=== PATIENT | female | born 1965 | race Two or more races ===

== ENCOUNTER 2024-04-26 14:04 | Emergency (ER) | payer MEDICAID, SELFPAY ==
[2024-04-26 14:27] VITALS: BP 143/99; PULSE 100; RESP 18; TEMP 37.1; O2SAT 98; BMI 31.2
--- NOTE | 2024-04-26 14:45 | XR_ITS ---
Examination: CT brain head without contrast. 2-D sagittal coronal reconstructions Date and time of exam:April 26, 2024 1613 hours INDICATIONS: Left-sided head pain radiating to the neck beginning 4 days ago COMPARISON: 12/22/2010 CTDI: vol (mGy):46.8 DLP: (mGycm):927 Technique: Multiple CT axial sections of the brain have been obtained, 5 mm slice thickness. Contrast has not been administered. 2-D sagittal, coronal reconstructions have been obtained Low dose protocols were performed. One or more of the following dose reduction techniques were used; automated exposure control, adjustment of the mA and/or KV according to patient size, use of iterative reconstruction technique. Findings: No significant ventricular enlargement. Intra-axial or extra-axial hemorrhage density is not seen. No mass effect or midline shift Basal cisterns are not remarkable. Fourth ventricle is midline. Cranial vault intact. Impression: Negative for acute hemorrhage, mass effect or midline shift
--- NOTE | 2024-04-26 14:45 | XR_ITS ---
Examination: CT cervical spine without contrast 2-D sagittal reconstructions 2-D coronal reconstructions 3-D reconstructions. Exam date and time:April 26, 2024 1613 hours INDICATIONS: Neck pain beginning 4 days ago CTDI:vol (mGy) 8.54 DLP: (mGycm) 184 Technique: Multiple 2 mm axial sections of the cervical spine have been obtained. The coronal and sagittal reconstructions have been obtained. 3-D reconstructions have been obtained. Low dose protocols were performed. One or more of the following dose reduction techniques were used; automated exposure control, adjustment of the mA and/or KV according to patient size, use of iterative reconstruction technique. Findings: Axial sections demonstrate intact base of the skull. Cervical fusion C4-C7 with anatomic alignment C1 exhibit satisfactory relationship to the odontoid. No acute cervical vertebral body fracture seen. Alignment posterior spinous processes satisfactory. C5-C6, C6-C7 moderate left neural foraminal stenosis Impression: No acute cervical fracture. C5-C6, C6-C7 moderate left neural foraminal stenosis
--- NOTE | 2024-04-26 14:45 | PD.EDRME ---
Rapid Medical Screening Exam RME Arrival date/time: 04/26/24 14:04 58-year-old female with history of cervical fusion reports with complaints of left side head and neck pain x 1 week Chief Complaint: Headache Time Seen by Provider: 04/26/24 14:17 Vital signs: Vital Signs Temperature 98.7 F 04/26/24 14:27 Pulse Rate 100 04/26/24 14:27 Respiratory Rate 18 04/26/24 14:27 Blood Pressure 143/99 H 04/26/24 14:27 Pulse Oximetry (%) 98 04/26/24 14:27 Oxygen Delivery Method Room Air 04/26/24 14:27
--- NOTE | 2024-04-26 15:17 | PD.EDRME ---
Rapid Medical Screening Exam RME Arrival date/time: 04/26/24 14:04 04/26/24 14:04 58-year-old female with history of cervical fusion reports with complaints of left side head and neck pain x 1 week Chief Complaint: Headache Time Seen by Provider: 04/26/24 14:17 Vital signs: Vital Signs Temperature 98.7 F 04/26/24 14:27 Pulse Rate 100 04/26/24 14:27 Respiratory Rate 18 04/26/24 14:27 Blood Pressure 143/99 H 04/26/24 14:27 Pulse Oximetry (%) 98 04/26/24 14:27 Oxygen Delivery Method Room Air 04/26/24 14:27 RME Narrative: 04/26/24 14:04 58-year-old female with history of cervical fusion reports with complaints of left side head and neck pain x 1 week
--- NOTE | 2024-04-26 17:41 | EDNOTE_ITS ---
ED Headache RME/HPI General Chief Complaint: Headache Stated Complaint: PAIN/NUMBNESS TO LEFT HEAD/NECK/SHOULDER Time Seen by Provider: 04/26/24 14:17 Arrival date/time: 04/26/24 14:04 58-year-old female with a history of cervical fusion of C4-C7 reports with complaints of left-sided neck pain that radiates to the left side of the head for 1 week. Patient denies vision or hearing changes dizziness nausea or vomiting syncopal episodes weakness fatigue cough congestion fever or chills. Patient states that she has not taken any medications as she was uncertain of what to take Limitations: no limitations RME / HPI RME / HPI Narrative: 04/26/24 14:04 58-year-old female with history of cervical fusion reports with complaints of left side head and neck pain x 1 week Related Data Home Medications ?Medication ?Instructions ?Recorded ?Confirmed lisinopril 2.5 mg tablet 5 mg PO DAILY 03/18/18 07/25/23 vibegron 75 mg tablet (Gemtesa) 75 mg PO QDAY 03/12/22 07/25/23 estradiol 0.01% (0.1 mg/gram) 2 g vaginal DIRECTED 07/23/22 07/25/23 vaginal cream (Estrace) Previous Rx's ?Medication ?Instructions ?Recorded ibuprofen 800 mg tablet 800 mg PO TID PRN pain #30 tabs 01/07/23 tramadol 50 mg tablet 50 mg PO BID PRN pain #6 tabs 01/07/23 dextromethorphan-guaifenesin 5 10 ml PO Q8H PRN cough #180 mL 02/25/23 mg-100 mg/5 mL oral liquid ipratropium bromide 21 mcg (0.03 2 spray intranasal TID PRN nasal 02/25/23 %) nasal spray congestion #30 mL prednisone 20 mg tablet See Rx Instructions .Route 02/25/23 .COMPLEX #9 tabs hydrocodone 5 mg-acetaminophen 325 1 tab PO BID PRN pain #10 tabs 10/30/23 mg tablet ibuprofen 600 mg tablet 600 mg PO Q6H #30 tabs 10/30/23 Allergies Allergy/AdvReac Type Severity Reaction Status Date / Time No Known Allergies Allergy Verified 10/30/23 17:45 Review of Systems Constitutional Constitutional: Denies chills and Denies fever(s) Eyes Eyes: Denies change in vision and Denies eye discharge ENT Ears, Nose, Mouth, and Throat: Denies abnormal hearing, Denies disequilibrium, Denies dizziness and Reports neck pain Cardiovascular Cardiovascular: Denies chest pain, Denies dyspnea, Denies leg edema and Denies syncope Respiratory Respiratory: Denies cough and Denies dyspnea Gastrointestinal Gastrointestinal: Denies nausea and Denies vomiting Musculoskeletal Musculoskeletal: Denies back pain and Reports neck pain Integumentary/Breasts Skin/Breast: Denies erythema, Denies lesions, Denies rash and Denies skin pain Neurologic Neurologic: Denies abnormal hearing, Denies behavioral changes, Denies confusion, Denies disequilibrium, Denies dizziness and Denies syncope Psychiatric Psychiatric: Denies behavioral changes and Denies confusion Hematologic/Lymphatic Hematologic/Lymphatic: Denies easy bleeding and Denies easy bruising Past Medical History Past Medical History NEUROLOGIC: Negative Neurological Disorders CARDIAC: Positive Hypertension; Negative Cardiac Disorders or Congestive Heart Failure RESPIRATORY: Negative Chronic Obstructive Pulmonary Disease (COPD) or Asthma GASTROINTESTINAL: Negative Gastrointestinal Disorders GENITOURINARY: Negative Genitourinary Disorders or Renal Disease MUSCULOSKELETAL: Negative Musculoskeletal Disorders ENDOCRINE: Negative Diabetes Mellitus Type 1 or Diabetes Mellitus Type 2 HEMATOLOGIC: Negative Sickle Cell Disease PSYCHO/SOCIAL: Negative Psychiatric Problems Surgical History SURGICAL: Positive Hysterectomy Social History SMOKING STATUS: Never smoker ED Exam General Limitations: Present no limitations General appearance: Present alert and in no apparent distress Head Head exam: Present atraumatic Eye Eye exam: Present normal appearance, PERRL and EOMI ENT ENT exam: Present normal exam, normal oropharynx and mucous membranes moist Neck Neck exam: Present normal inspection, full ROM and trachea midline Chest Chest inspection: Present normal inspection and symmetric chest wall rise Respiratory Respiratory exam: Present normal lung sounds bilaterally Cardiovascular Cardiovascular exam: Present regular rate, normal rhythm and normal heart sounds Abdominal Exam Abdominal exam: Present soft and normal bowel sounds Extremities Exam Extremities exam: Present normal inspection and full ROM Back Exam Back exam: Present normal inspection and full ROM Neurological Exam Neurological exam: Present alert, oriented X3 and CN II-XII intact Psychiatric Psychiatric exam: Present normal affect and normal mood Skin Skin exam: Present warm, dry, intact and normal color Course Course Course Narrative: 58-year-old female reports with complaints of a headache. Patient CT cervical spine is indicative of the C4-C7 cervical fusion but no other abnormalities are noted head CT is unremarkable. Differential diagnosis includes tension headache migraine headache and stress Quality Measures none Orders Category Date Time Status CT cervical spine wo con Stat Exams 04/26/24 14:[address] head/brain wo con Stat Exams 04/26/24 14:45 Completed Vital Signs Vital signs: Vital Signs Temperature 98.7 F 04/26/24 14:27 Pulse Rate 100 04/26/24 14:27 Respiratory Rate 18 04/26/24 14:27 Blood Pressure 143/99 H 04/26/24 14:27 Pulse Oximetry (%) 98 04/26/24 14:27 Oxygen Delivery Method Room Air 04/26/24 14:27 Headache Patient data External records reviewed:: None Clinical information provided by:: patient Social determinants that could affect healthcare access:: none Patient has the following chronic illnesses:: none How is presenting disease/condition affected by chronic disease/condition?: no chronic disease Evaluation data The following diagnostics were reviewed and interpreted by me:: radiology exam(s) Lab and/or radiology exams considered but not ordered:: none Interpretation Summary: negative for brain bleed Medications / Prescriptions Medications or Prescriptions considered but not ordered:: none Medication administrations:: none Consultations Consultation(s) initiated? (list below): No Diagnosis Differential diagnosis headache: migraine and tension headache Most likely diagnosis given after review of the tests above:: Headache Admission Indicated Admission indicated?: not indicated Admission Request Was there a request for admission?: No Disposition Plan Disposition Plan: Discharge Discharge Attestation Discharge Attestation: The patient and all family members were given an opportunity to ask questions and understood the discharge instructions. Discharge instructions specifically effects, indications for sooner follow up or return to the emergency department, and the expected course of current diagnosis. Patient condition: Stable Discharge Plan Plan Patient Disposition: HOME (Self Care) Prescriptions/Referrals Prescriptions/Med Rec: No Action lisinopril 2.5 mg tablet 5 mg PO DAILY estradiol [Estrace] 0.01 % (0.1 mg/gram) cream 2 g vaginal DIRECTED Patient Comments: twice a week Rx Instructions: for 7 days Gemtesa 75 mg tablet 75 mg PO QDAY ibuprofen 800 mg tablet 800 mg PO TID PRN (Reason: pain) Qty: 30 0RF tramadol 50 mg tablet 50 mg PO BID PRN (Reason: pain) Qty: 6 0RF dextromethorphan-guaifenesin 5-100 mg/5 mL liquid 10 ml PO Q8H PRN (Reason: cough) Qty: 180 0RF prednisone 20 mg tablet See Rx Instructions .ROUTE .COMPLEX Qty: 9 0RF Rx Instructions: 2 tabs PO QAM x 3 days, then 1 tab PO QAM x 3 days ipratropium bromide 21 mcg (0.03 %) spray,non-aerosol 2 spray intranasal TID PRN (Reason: nasal congestion) Qty: 30 0RF Rx Instructions: 2 sprays each nostril up to 3 times a day prn nasal congestion hydrocodone-acetaminophen 5-325 mg tablet 1 tab PO BID MDD 10 PRN (Reason: pain) Qty: 10 0RF ibuprofen 600 mg tablet 600 mg PO Q6H Qty: 30 0RF Referrals: Nolan Aleman PA-C [Primary Care Provider] - In 1 week Problem List Clinical Impression: Headache, Neck pain Patient/Caregiver Discharge Instructions Discharge Activity: activity as tolerated Education Materials: Know Your Neck: The Cervical Spine Additional Instructions: Your CAT scans were normal your headaches can be treated with medication such as ibuprofen or Tylenol take as directed and follow with your primary care provider as needed. Be sure to hydrate well Print Language: Icelandic Stand Alone Forms: [facility] Award Info., Patient Portal Info Letter
[2024-04-26] MEDS: KETOROLAC INJ 60 MG/2 ML VIAL 30 MG IM (19:09)
== END 2024-04-26 19:14 | disposition home or self-care (01) ==
PROVIDERS: Emergency Provider Emergency Medicine; PCP Physician Assistant
DX: R51.9 Headache, unspecified (principal); M54.2 Cervicalgia
CPT/HCPCS: 70450; 72125; 96372; 99284; J1885

== ENCOUNTER 2024-07-27 14:00 | Outpatient (RCR) | payer MEDICAID, SELFPAY ==
--- NOTE | 2024-07-19 14:06 | PT.OIERPT ---
PT OP Initial Eval Patient Information Outpatient Physical Therapy Treatment Date: 07/19/24 Visit Reasons: NECK PAIN Medical Diagnosis: M48.02 Treatment Dx #1: neck pain Treatment Dx #2: Decreased C/S ROM Start of Care: 07/19/24 Date of Onset: 1 yr ago Smoking Status Smoking Status: Never smoker Initial Assessment Subjective: Pt is 58 yr old female who reports onset of neck pain x1 yr on the L side. 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 PMH: HTN, allergies, anxiety, anterior C/S fusion in 2013 Imaging: Xray of C/S in EMR, C5-C6, C6-C7 moderate left neural foraminal stenosis?? Pt goal: less pain in the neck Objective: C/S AROM: Flexion: 20% Extension: unable Rotation: R: 40%, L: 30% of full TTP: moderate of L side C/S and upper trap Assessment: Pt reports decreased C/S ROM and L sided neck pain with TTP of the upper traps and scalenes. Pt requires skilled therapy to meet goals and has fair rehb potential to meet goals. 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 Ind with HEP 2. Improved C/S ROM to at least 50% B 3. Decreased TTP of C/S and L UT from mod to min Pt will tolerate work duties x1 hr with <=3/10 neck pain Treatment Plan ? 1. Manual therapy ? 2. Therex ? 3. Modalities as indicated, moist heat, ice, estim, mechanical traction Frequency and Duration: 2x a week for 4 trial visits. If progressing continued up to 12 visits plus evaluation Certification Dates: 07/19/24 to 10/17/24 Procedure Charges OP PT Eval Mod Complex 30 minutes: Yes
--- NOTE | 2024-07-27 14:47 | PT.ODAYNRPT ---
PT Outpatient Daily Note OP Daily Note Outpatient Physical Therapy Treatment Date: 07/27/24 Visit Reasons: NECK PAIN Subjective: L side of neck is tight and she notices her shoulders are elevated during the day due to the neck pain Objective: See F/S for therex MT: STM B UT's x4' MHP x5' C/S Assessment: Mod/high TTP and tightness of B upper traps L>R. Plan: Continue per POC Length of Time (minutes) of Treatment: 30 Minutes Procedure Charges Therapeutic Exercise 30 minutes: Yes
== END 2024-07-28 23:59 | disposition home or self-care (01) ==
LOC: CPTX 14:00
PROVIDERS: PCP Physician Assistant; Referring Provider Physician Assistant; Visit Provider Physician Assistant
DX: M48.02 Spinal stenosis, cervical region (principal); I10 Essential (primary) hypertension
CPT/HCPCS: 97110; 97162

== ENCOUNTER 2024-08-13 15:00 | Outpatient (RCR) | payer MEDICAID, SELFPAY ==
--- NOTE | 2024-07-29 14:24 | PT.ODAYNRPT ---
PT Outpatient Daily Note OP Daily Note Outpatient Physical Therapy Treatment Date: 07/29/24 Visit Reasons: Neck pain Subjective: L side of neck is tight and she notices her shoulders are elevated during the day due to the neck pain Objective: See F/S for therex Mechanical traction C/S x5' at 10 lbs, held due to pt not tolerating MHP x5' C/S Assessment: Pt asked to stop traction after about 4-5 mins due to pain where the pads hit the neck Plan: Continue per POC Length of Time (minutes) of Treatment: 30 Minutes Procedure Charges Therapeutic Exercise 30 minutes: Yes
--- NOTE | 2024-08-04 15:07 | PT.ODAYNRPT ---
PT Outpatient Daily Note OP Daily Note Outpatient Physical Therapy Treatment Date: 08/04/24 Visit Reasons: Neck pain Subjective: Pt reports neck is stiff and painful Objective: Please see flow sheet for ther ex list. Assessment: Pt demonstrates upper trap recruitment during stationary sitting, verbal cues to relax upper trap. Plan: Continue with POC. Length of Time (minutes) of Treatment: 30 Minutes Procedure Charges Therapeutic Exercise 30 minutes: Yes
--- NOTE | 2024-08-06 14:41 | PT.ODAYNRPT ---
PT Outpatient Daily Note OP Daily Note Outpatient Physical Therapy Treatment Date: 08/06/24 Visit Reasons: Neck pain Subjective: Pt reports neck is really painful today more so than usual. Objective: Please see flow sheet for ther ex list. Assessment: Regressed interventions to accommodate reported pain. Plan: Continue with pOC. Length of Time (minutes) of Treatment: 30 Minutes Procedure Charges Therapeutic Exercise 30 minutes: Yes
--- NOTE | 2024-08-10 14:37 | PT.ODAYNRPT ---
PT Outpatient Daily Note OP Daily Note Outpatient Physical Therapy Treatment Date: 08/10/24 Visit Reasons: Neck pain Subjective: Pt reports neck pain is 6/10 today, does not feel any changes or progress at this time. Objective: Please see flow sheet for ther ex list. Assessment: Pt demonstrates poor activity tolerance due to pain reported. Plan: Continue with pOC. Length of Time (minutes) of Treatment: 30 Minutes Procedure Charges Therapeutic Exercise 30 minutes: Yes
--- NOTE | 2024-08-13 15:02 | PT.ODAYNRPT ---
PT Outpatient Daily Note OP Daily Note Outpatient Physical Therapy Treatment Date: 08/13/24 Visit Reasons: Neck pain Subjective: Pt c/o high pain and stiffness today, shared that she feels neck has been worse these last few weeks. Objective: Please see flow sheet for ther ex list. Assessment: Pt presents in clinic with worsening symptoms, decrease in ROM and high TTP upper trap region. Poor interventions progression due to pain response. Plan: Assess for possible DC , pt has completed 6/12 visits so far with worsening symtpoms. Length of Time (minutes) of Treatment: 30 Minutes Procedure Charges Therapeutic Exercise 30 minutes: Yes
--- NOTE | 2024-08-17 14:15 | PTNOTE_ITS ---
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 Objective: C/S AROM: Rotation: R: 40% of full TTP: high of B traps No Rx today, no charges Assessment: Pt attended 6/12 Rx sessions with limited progress with therapy due to worsening neck and upper trap pain. For this reason pt hasn't met goals. Pt may benefit from further diagnostic imaging of C/S. Plan: D/C
== END 2024-08-28 23:59 | disposition home or self-care (01) ==
LOC: CPTX 15:00
PROVIDERS: PCP Physician Assistant; Referring Provider Physician Assistant; Visit Provider Physician Assistant
DX: M48.02 Spinal stenosis, cervical region (principal); I10 Essential (primary) hypertension
CPT/HCPCS: 97110

== ENCOUNTER → 2024-10-29 | Outpatient (BNVA) | payer MEDICAID, SELFPAY | END | disposition home or self-care (01) | PROVIDERS: PCP Physician Assistant; Referring Provider Physician Assistant; Visit Provider Urology | DX: N39.46 Mixed incontinence (principal); N32.81 Overactive bladder; Z87.440 Personal history of urinary (tract) infections; I10 Essential (primary) hypertension; E78.5 Hyperlipidemia, unspecified; E66.9 Obesity, unspecified; Z71.3 Dietary counseling and surveillance; Z68.33 Body mass index [BMI] 33.0-33.9, adult | CPT/HCPCS: 81003; 99212; G0463 ==

== ENCOUNTER → 2024-12-28 | Outpatient (CLI) | payer MEDICAID, SELFPAY ==
--- NOTE | 2024-12-28 09:15 | XR_ITS ---
Examination: Breast ultrasound complete, bilateral Date and time of exam: December 28, 2024, 0931 hours, comparison February 06, 2024 INDICATIONS: Diagnosis cystic mastopathy right breast, mammogram January 19, 2024 focal asymmetry retroareolar region left breast Technique: Real-time grayscale ultrasonographic imaging bilateral breasts, including all 4 quadrants as well as nipple retroareolar and axillary regions. Findings: Sonographic images right breast 12:00 cyst 5 x 4 mm 12:00 nodule circumscribed 6 x 6 mm Sonographic images left breast No cystic or solid mass IMPRESSION: BI-RADS Category 2: Benign findings
--- NOTE | 2024-12-28 10:15 | XR_ITS ---
Examination: Diagnostic digital mammography, bilateral Computer aided detection 3-D breast Tomosynthesis, bilateral Date and time of exam: December 28, 2024, 1005 hours, compared to mammograms dating to April 13, 2020 INDICATIONS: Mammogram January 19, 2024 focal asymmetry retroareolar region left breast Technique: Nonmagnified MLO, CC views of the breasts to been obtained, reconstructed from 3-D Tomosynthesis images. R2 computer aided detection program utilized for evaluation of suspicious masses and/or abnormal calcifications. 3-D Tomosynthesis images obtained. Findings: Scattered areas of fibroglandular density No suspicious nodule noted on the spot compression and routine views Benign calcifications Impression: BI-RADS Category 2: Benign findings Recommend yearly follow-up mammography.
== END | disposition home or self-care (01) ==
LOC: CDIM 09:11
PROVIDERS: PCP Physician Assistant; Referring Provider Physician Assistant; Visit Provider Physician Assistant
DX: R92.323 Mammographic fibroglandular density, bilateral breasts (principal); R92.1 Mammographic calcification found on diagnostic imaging of breast
CPT/HCPCS: 76641; 77062; 77066; G0279